=== PATIENT | female | born 1930 | race Two or more races ===

== ENCOUNTER 2016-06-10 18:00 | Inpatient (IN) | payer MEDICARE, BC, MEDICAID ==
--- NOTE | 2016-06-10 18:32 | ED Physician Chart ---
Chief Complaint/HPI - Patient Information Date Seen:: 06/10/16 Time Seen:: 18:27 Chief Complaint:: diarhea History of Present Illness:: diarhea x 6 today. not bloody by reports. no fever. no vomiting. pt speaks some faroese but is demented and I cant get her to answer any questions (even in faroese). no other injury or process acutely noted by staff. Allergies:: Allergies Allergy/AdvReac Type Severity Reaction Status Date / Time Penicillins [PCN] Allergy Verified 06/10/16 18:21 Historian:: Patient Review of Systems - Review of Systems General/Constitutional: No fever, No chills, No weight loss, No weakness, No diaphoresis, No edema, No loss of appetite, Other (nonverbal pt...limits ros hx severely.) Skin: No skin lesions, No rash, No bruising Head: No headache, No light-headedness Eyes: No loss of vision, No pain, No diplopia ENT: No earache, No nasal drainage, No sore throat, No tinnitus Neck: No neck pain, No swelling, No thyromegaly, No stiffness, No mass noted Cardio Vascular: No chest pain, No palpitations, No PND, No orthopnea, No edema Pulmonary: No SOB, No cough, No sputum, No wheezing GI: No nausea, No vomiting, Diarrhea, No pain, No melena, No hematochezia, No constipation, No hematemesis G/U: No dysuria, No frequency, No hematuria Small Kick Press Operator: No vaginal discharge, No abnormal vaginal bleed Musculoskeletal: No bone or joint pain, No back pain, No muscle pain Endocrine: No polyuria, No polydipsia Psychiatric: No prior psych history, No depression, No anxiety, No suicidal ideation Hematopoietic: No bruising, No lymphadenopathy Allergic/Immuno: No urticaria, No angioedema Neurological: No syncope, No focal symptoms, No weakness, No paresthesia, No headache, No seizure, No dizziness, Confusion, No vertigo Past Medical History - Past Medical History Past Medical History: HTN, CVA/TIA, Dementia, Other (dysphagia) Social History: Care Facility Psychiatricy History: Depression Medication: Reviewed Family Medical History - Family Member Maternal History Unknown: Yes Ethnicity: Hx Family Cancer: No Hx Family Congestive Heart Failure: No Hx Family Hypertension: No Hx Family Stroke: No Hx Family Seizures: No Hx Family AIDS: No Physical Exam - Physical Examination General/Constitutional: Awake, Alert, No distress, Non-toxic appearing Other Gen/Cons comments:: alert but nonverbal ...severely limits hx available Head: Atraumatic Eyes: Lids, conjuctiva normal, PERRL, EOMI Skin: Nl inspection, No rash, No skin lesions, No ecchymosis, Well hydrated, No lymphadenopathy ENMT: External ears, nose nl, Nasal exam nl, Lips, teeth, gums nl Neck: Nontender, Full ROM w/o pain, No JVD, No nuchal rigidity, No bruit, No mass, No stridor Respiratory: Nl effort/Exclusion, Clear to Auscultation, No Wheeze/Rhonchi/Rales Cardio Vascular: RRR, No murmur, gallop, rubs, NL S1 S2 GI: No tenderness/rebounding/guarding, No organomegaly, No hernia, Normal BS's, Nondistended, No mass/bruits, No McBurney tenderness Other GI comments:: abd seems soft and nontnddr. no masses. nrml bs. : No CVA tenderness Extremities: No tenderness or effusion, Full ROM, normal strength in all extremities, No edema, Normal digits & nails Neuro/Psych: Alert/oriented, DTR's symmetric, Normal sensory exam, Normal motor strength, No focal deficits Other Neuro/Psych comments:: alert but nonverbal ...severely limits hx available cant comply w detailed neuro exam but no large obv defecit Misc: normal gait, Normal back, No paraspinal tenderness Labs/Radiology/EKG Results - Lab Results Results: Laboratory Tests 06/10/16 06/10/16 19:00 19:00 WBC 6.8 RBC 4.23 Hgb 12.8 Hct 37.9 MCV 89.5 MCH 30.3 MCHC Differential 33.8 RDW 13.1 Plt Count 260 MPV 7.1 Neutrophils % 67.5 Lymphocytes % 22.3 Monocytes % 7.2 Eosinophils % 2.2 Basophils % 0.8 Sodium 137 Potassium 4.1 Chloride 107 Carbon Dioxide 23.9 Anion Gap 10.2 BUN 24 Creatinine 0.8 Est GFR ( Amer) TNP Est GFR (Non-Af Amer) TNP BUN/Creatinine Ratio 30.0 Glucose 101 Calcium 10.1 Total Bilirubin 0.3 AST 14 ALT 5 L Alkaline Phosphatase 63 Total Protein 7.1 Albumin 3.8 Globulin 3.3 Albumin/Globulin Ratio 1.2 Lipase 72 - Radiology Results Results: ct abd/p- diverticulosis, stool filled colon, sev asvd, sev djd spine ED Septic Shock - . Is Septic Shock (SBP<90, OR Lactate>4 mmol\L) present?: No Reassessment (Disposition) - Reassessment Reassessment:: amie Christopher will admit r/o infection=us diarrhea...poss fecal impaction Reassessment Condition:: Unchanged - Diagnosis Diagnosis:: 1 diarrhea 2 stool filled colon - Patient Disposition Admitted to:: Med/Surg Condition at Disposition:: Unchanged
[2016-06-10] MEDS ORDERED: Sodium Chloride 0.9% 1,000 ML IV ONE (18:35)
[2016-06-10 19:15] LABS: % BASOPHILS 0.8 % (0.0-2.0); % EOSINOPHILS 2.2 % (0.0-5.0); % LYMPHOCYTES 22.3 % (20.0-50.0); % MONOCYTES 7.2 % (2.0-10.0); % NEUTROPHILS 67.5 % (40.0-80.0); HEMATOCRIT 37.9 % (35.0-45.0); HEMOGLOBIN 12.8 gm/dL (11.7-16.1); MEAN CELL VOLUME 89.5 fl (81-100); MEAN CORPUSCULAR HEMOGLOBIN 30.3 pg (27.0-31.0); MEAN CORPUSCULAR HGB CONC 33.8 pg (28.0-36.0); MEAN PLATELET VOLUME 7.1 fl; NEUTROPHILE ABSOLUTE 4.6 Th/cmm (1.8-8.0); PLATELET COUNT 260 Th/cmm (150-400); RED BLOOD COUNT 4.23 Mil/cmm (3.80-5.20); RED CELL DISTRIBUTION WIDTH 13.1 % (11.5-20.0); WHITE BLOOD COUNT 6.8 Th/cmm (4.8-10.8)
[2016-06-10 19:27] LABS: ALB/GLOB RATIO 1.2 (1.0-1.8); ALKALINE PHOSPHATASE 63 U/L (34-104); ANION GAP 10.2 (7.0-16.0); BILIRUBIN,TOTAL 0.3 mg/dL (0.3-1.0); BUN - UREA NITROGEN 24 mg/dL (7-25); CALCIUM SERUM 10.1 mg/dL (8.6-10.3); CARBON DIOXIDE 23.9 mEq/L (21.0-31.0); CHLORIDE 107 mEq/L (98-107); CREATININE - SERUM 0.8 mg/dL (0.6-1.2); GLUCOSE 101 mg/dL (70-105); LIPASE 72 U/L (11-82); POTASSIUM SERUM 4.1 mEq/L (3.5-5.1); SGOT 14 U/L (13-39); SGPT/ALT 5 U/L (7-52); SODIUM SERUM 137 mEq/L (136-145)
[2016-06-10] MEDS ORDERED: Fleet Enema 135 mL RC PRN (20:58)
[2016-06-10] MEDS: D5-0.45NS 1,000 ML IV SCH (22:00)
[2016-06-10] MEDS: metroNIDAZOLE 500mg/NS 100mL 500 MG/100 ML BAG IV SCH (23:00)
[2016-06-11] MEDS: Levofloxacin 500mg/100mL 500 MG/100 ML BAG IV SCH ×2 (00:10→22:33)
[2016-06-11] MEDS: metroNIDAZOLE 500mg/NS 100mL 500 MG/100 ML BAG IV SCH ×3 (06:33→23:50)
[2016-06-11 07:28] LABS: % BASOPHILS 0.3 % (0.0-2.0); % EOSINOPHILS 2.7 % (0.0-5.0); % LYMPHOCYTES 18.7 % (20.0-50.0); % MONOCYTES 8.2 % (2.0-10.0); % NEUTROPHILS 70.1 % (40.0-80.0); HEMOGLOBIN 11.9 gm/dL (11.7-16.1); MEAN CELL VOLUME 87.4 fl (81-100); MEAN CORPUSCULAR HEMOGLOBIN 30.6 pg (27.0-31.0); MEAN PLATELET VOLUME 7.4 fl; NEUTROPHILE ABSOLUTE 4.7 Th/cmm (1.8-8.0); PLATELET COUNT 255 Th/cmm (150-400); RED CELL DISTRIBUTION WIDTH 12.8 % (11.5-20.0); WHITE BLOOD COUNT 6.7 Th/cmm (4.8-10.8)
[2016-06-11 07:37] LABS: HEMATOCRIT 34.1 % (35.0-45.0)
[2016-06-11 07:44] LABS: ALB/GLOB RATIO 1.3 (1.0-1.8); ALKALINE PHOSPHATASE 54 U/L (34-104); ANION GAP 9.1 (7.0-16.0); BILIRUBIN,TOTAL 0.5 mg/dL (0.3-1.0); BUN - UREA NITROGEN 18 mg/dL (7-25); BUN/CREATININE RATIO 25.7; CALCIUM SERUM 9.7 mg/dL (8.6-10.3); CARBON DIOXIDE 23.5 mEq/L (21.0-31.0); CHLORIDE 107 mEq/L (98-107); CREATININE - SERUM 0.7 mg/dL (0.6-1.2); GLUCOSE 102 mg/dL (70-105); MAGNESIUM 2.1 mg/dL (1.9-2.7); POTASSIUM SERUM 3.6 mEq/L (3.5-5.1); SGOT 14 U/L (13-39); SGPT/ALT 8 U/L (7-52); SODIUM SERUM 136 mEq/L (136-145)
[2016-06-11] MEDS ORDERED: Pneumococcal Vaccine 0.5 mL Vial IM ONE (09:00)
[2016-06-11] MEDS: Multivitamin Tab PO SCH (09:13)
[2016-06-11] MEDS: Calcium Carb/Vit D 500 mg/200 U Tab PO SCH (09:13)
--- NOTE | 2016-06-11 10:47 | History & Physical ---
CHIEF COMPLAINT: Sent to Emergency Room for diarrhea evaluation for last 6 days with increasing weakness and lethargy. HISTORY SOURCE: Reviewing the chart, talking to the nursing staff at [facility] as well as the Emergency Room [facility] HISTORY OF PRESENT ILLNESS: An 86-year-old, resident of [facility], has a history of Parkinson disease, coronary artery disease, peripheral vascular disease, diastolic dysfunction, speaks Romansh only has been having a chronic constipation as well in the past, has been seen by unit manager rn and noted to have profuse diarrhea for last 4-5 days associated with generalized weakness. The patient was sent to Emergency Room for evaluation. After being evaluated, the patient was advised to be admitted in the hospital since CT scan of the abdomen and pelvis consistent with stool filled colon associated with diverticulosis. The patient did have a previous GI evaluation and now the patient has significant amount of stool filled colon and diarrhea, needs evaluation in the hospital. PAST MEDICAL HISTORY: Remarkable for: 1. Hypertension. 2. Dementia. 3. Parkinson disease. 4. DJD. 5. Diastolic dysfunction 6. Peripheral vascular disease. MEDICATIONS AT HOME: Vitamin C, Colace, multivitamin, calcium with vitamin D supplement, Sinemet, Plavix, Aricept, lisinopril, multivitamin, amlodipine. ALLERGIES: THE PATIENT IS ALLERGIC TO PENICILLIN. SOCIAL HISTORY: The patient is a resident of [facility]. FAMILY HISTORY: Unavailable. REVIEW OF SYSTEMS: Unable to obtain due to recurrent conditions and dementia. PHYSICAL EXAMINATION: GENERAL: The patient is alert, awake, lying in the bed. VITAL SIGNS: Temperature 97.2, pulse 70, respiratory rate 18, blood pressure 143/67. SKIN: Warm to touch. HEENT: Normocephalic, atraumatic. Extraocular muscles are intact. Tongue pink and coated. NECK: Supple, no JVD, no hepatojugular reflux. No lymphadenopathy, thyromegaly or carotid bruit. HEART: Both heart sounds are regular. No S3, no S4. CHEST: Lung equal in expansion, no wheezing, no crackles. ABDOMEN: Distended with diffuse tenderness. Bowel sounds are sluggishly present. No palpable mass. EXTREMITIES: No edema. No cyanosis. Peripheral pulses are +1. No calf tenderness. NEUROLOGIC: Alert, awake, follows commands. AVAILABLE DIAGNOSTIC DATA: White count of 6.8, hemoglobin 12.8, platelet count of 260. Chemistry panels are within normal limit. AST and ALT 14 and 5. Lipase were 72. CT scan of the abdomen and pelvis remarkable for diverticulosis with stool filled colon with severe atherosclerotic changes and osteoarthritis changes also noted. CLINICAL IMPRESSION: 1. Diarrhea for last 6 days, suspect the patient's diarrhea most likely related to stool-filled colon associated with the infectious etiology. 2. Generalized weakness secondary to diarrhea. 3. Dementia. 4. Parkinson's. 5. Degenerative joint disease. 6. Atherosclerotic heart disease. 7. Peripheral vascular disease. 8. Required total care. PLAN: The patient has been admitted at this time to Med/Surg floor. GI to evaluate stool studies, ____ empirically Levaquin and Flagyl. Appropriate home medicine reconciliation. Packing And Wrapping Supervisor evaluation from Dr. Colvin and follow his recommendations. Follow up lab. Care plan has been reviewed and discussed. [facility]# [id number]
--- NOTE | 2016-06-11 10:52 | Diagnostic Imaging Report ---
CT abdomen and pelvis without intravenous contrast Indication: Diarrhea. Patient nonverbal Comparison: None, Technique: Axial images were obtained from the lung bases to the bilateral proximal femurs without IV contrast. Coronal reconstructions were made. total DLP: 300, CTDI6.28 FINDINGS: Hypoventilatory and atelectatic changes of the lung bases are noted with chronic changes also noted. Exam is limited due to motion and lack of IV and oral contrast. No evidence of focal hepatic lesions. The patient is status post cholecystectomy. No focal splenic lesions. No gross focal pancreatic lesions. The adrenal glands are poorly visualized. No evidence of hydronephrosis or nephrolithiasis. Postsurgical changes of bowel loops within the pelvis are noted. Diverticulosis is noted. No diverticulitis. Copious stool is seen greatest within the sigmoid colon. Appendix not visualized. There is mild prominence of the rectal wall. No evidence of free air free fluid. Heavy atherosclerosis is noted. Advanced degenerative changes of the spine are noted with scoliosis. IMPRESSION: Limited exam. Copious stool throughout the colon. Diverticulosis is noted. No diverticulitis. Mild prominence of distal rectal wall. Infectious or inflammatory process cannot be excluded. Clinical correlation recommended. Postsurgical changes of bowel loops of the pelvis Evidence of prior cholecystectomy. Diffuse atherosclerotic vascular disease Degenerative changes.
[2016-06-11] MEDS ORDERED: Magnesium Citrate 1.75 GM/300 mL Bottle PO ONE (13:44)
[2016-06-11] MEDS ORDERED: VTE Chemical Prophylaxis Screen/Admission MC PRN (14:35)
[2016-06-11] MEDS: D5-0.45NS 1,000 ML IV SCH (18:41)
--- NOTE | 2016-06-12 05:23 | Consultation ---
REASON FOR CONSULTATION: Diarrhea, abdominal pain. HISTORY OF PRESENT ILLNESS: This consult was obtained through the courtesy of Dr. Christopher for this 86-year-old with multiple medical problems including hypertension, dementia, Parkinson's disease, diastolic dysfunction, peripheral vascular disease, degenerative joint disease, presenting to the hospital because of diarrhea over a few days with abdominal pain. When she came in, she was found to have fecal impaction with some liquid in the colon. GI consult was called in for further evaluation. PAST MEDICAL HISTORY: Dementia, hypertension, Parkinson disease, degenerative joint disease, diastolic dysfunction, peripheral vascular disease. PAST SURGICAL HISTORY: Not known. SOCIAL HISTORY: Nonsmoker, nonalcoholic, no IV drug abuse. FAMILY HISTORY: Noncontributory. ALLERGIES: PENICILLIN. MEDICATIONS: The patient is on Tylenol, Norvasc, Os-Christopher, Sinemet, Plavix, Aricept, Levaquin, Zestril, Flagyl, multivitamin, and temazepam. REVIEW OF SYSTEMS: Unobtainable. PHYSICAL EXAMINATION: GENERAL: The patient is awake, oriented to self. VITAL SIGNS: Blood pressure is 98/67, heart rate 76, respiratory rate 18, temperature is 98.0. HEAD AND NECK: Pupils reactive to light. Extraocular muscles could not be tested. Oral cavity, no lesion. NECK: Supple, no jugular venous distention, no carotid bruit or lymph node. CHEST: Good respiratory movements. LUNGS: Few rhonchi. CARDIOVASCULAR: Regular rate and rhythm. No murmur or gallop. ABDOMEN: Soft, positive bowel sounds. Abdomen is distended, mild diffuse tenderness. EXTREMITIES: No edema. Good peripheral pulses. CENTRAL NERVOUS SYSTEM: Unable to evaluate. LABORATORY DATA: CBC unremarkable. Chemistry: The same. CT scan showed postsurgical changes of the bowel, diverticulosis, copious amount of stools throughout the colon, prominence of the distal rectal wall, surgical changes consistent with history of cholecystectomy. IMPRESSION: An 86-year-old with multiple medical problems, now with abdominal pain, diarrhea, and abnormal CAT scan. ASSESSMENT AND PLAN: Abnormal CAT scan could be ____ due to overflow, could be due to colitis. RECOMMENDATIONS: Stool studies were sent for C. diff., O and P, C and S, and white blood cells. We will do bowel prep. Recheck KUB in the morning, then further plan to follow depending on the above. Other medical problems such as hypertension, dementia and degenerative joint disease, etc. as per Dr. Christopher. Thank you, Dr. Christopher for allowing me to participate in the care of this patient. If you have any further questions, please let me know. JOB# [id number]
[2016-06-12] MEDS: metroNIDAZOLE 500mg/NS 100mL 500 MG/100 ML BAG IV SCH ×2 (06:06→16:32)
[2016-06-12] MEDS: Calcium Carb/Vit D 500 mg/200 U Tab PO SCH (09:54)
[2016-06-12] MEDS: Multivitamin Tab PO SCH ×2 (09:56→09:57)
--- NOTE | 2016-06-12 11:15 | Diagnostic Imaging Report ---
Portable chest x-ray HISTORY: Pain, fecal impaction There is a nonspecific gas pattern of nondilated bowel. No free intraperitoneal air. Scoliosis of the thoracolumbar spine convexity to the right. IMPRESSION: 1. Nonspecific gas pattern of nondilated bowel
[2016-06-13] MEDS: Levofloxacin 500mg/100mL 500 MG/100 ML BAG IV SCH (00:49)
[2016-06-13] MEDS: metroNIDAZOLE 500mg/NS 100mL 500 MG/100 ML BAG IV SCH ×2 (01:38→08:29)
[2016-06-13] MEDS: Calcium Carb/Vit D 500 mg/200 U Tab PO SCH (09:10)
[2016-06-13] MEDS: Multivitamin Tab PO SCH ×2 (09:10→09:22)
--- NOTE | 2016-06-18 20:40 | Discharge Summary ---
PRINCIPAL DIAGNOSES: 1. Acute diarrhea, resolved at the time of discharge. 2. Abnormal CT abdomen and pelvis workup to be done as an outpatient. 3. Hypertension. 4. Dementia. 5. Parkinson's disease. 6. Dysphagia. 7. DJD. 8. Debility. BRIEF STATEMENT FOR THE REASON FOR ADMISSION: This 86-year-old resident of [facility] sent to Emergency Room for evaluation of abdominal pain, fever and diarrhea. The patient was worked up in the Emergency Room and subsequently admitted. Please refer to my dictated H and P for further information. HOSPITAL COURSE: The patient was admitted to med/surg floor. The patient was started on empirical antibiotic with Levaquin and Flagyl. GI consultation was requested. Stool study was also obtained. Appropriate home medicine was reconciliated as well. The patient was seen by bakery assistant. The patient did have a CT scan of the abdomen and pelvis, which did reveal abnormal finding which was consistent with prominence of the distal rectal wall, possibly infectious, inflammatory process. Though the patient was placed on antibiotic, her diarrhea was completely resolved. KUB were also done on 06/12/2016, which revealed nonspecific gas pattern of nondilated bowels. Since, the patient did not have any diarrhea, the patient remained hemodynamically stable. Decision was made that the patient also be discharged back to [facility] with p.o. antibiotic and have outpatient workup done by bakery assistant for her abnormal abdominal CT and pelvis. The patient will be followed by myself in a [facility] along with my nurse practitioner. At the time of discharge, all of her other medications were reconciliated. [facility]# [id number]
== END 2016-06-13 18:00 | DRG 392 ==
LOC: ER 18:00 → MSI 21:10
PROVIDERS: ADMIT Internal Medicine; ATTEND Internal Medicine
DX: A09 Infectious gastroenteritis and colitis, unspecified (principal); I50.30 Unspecified diastolic (congestive) heart failure; F03.90 Unspecified dementia, unspecified severity, without behavioral disturbance, psychotic disturbance, mood disturbance, and anxiety; I11.0 Hypertensive heart disease with heart failure; G20 Parkinson's disease; M19.90 Unspecified osteoarthritis, unspecified site; I25.10 Atherosclerotic heart disease of native coronary artery without angina pectoris; R13.10 Dysphagia, unspecified; F32.9 Major depressive disorder, single episode, unspecified; E11.51 Type 2 diabetes mellitus with diabetic peripheral angiopathy without gangrene; Z79.899 Other long term (current) drug therapy; Z88.0 Allergy status to penicillin
CPT/HCPCS: 36415-UA; 74000-TC; 80053-TC; 83690-TC; 83735-TC; 84484-TC; 85025-TC; 87046-90; 87230-TC; 89055-TC; 90799; 96374; J1956; J2405; J7030; Z7610